=== PATIENT | female | born 1990 | race Caucasian/White ===

== ENCOUNTER 2017-02-24 08:21 | Emergency (ER) | payer OTHER ==
[~2017-02-24] VITALS: Ht 165.1 cm; Wt 75.8 kg
[~2017-02-24 08:21] MED LIST: DIFLUCAN150 MG PO; HYQVIA SQ; NAPROSYN500 MG PO; NORCO 5-325 TA1 EACH PO; PHENERGAN 25 MG25 M1 PO; VITAFOL-OB+DHA1 EACH PO; ZOFRAN ODT8 MG PO
[2017-02-24] MEDS ORDERED: KEFLEX500 MG PO (08:30)
[2017-02-24 08:31] LABS: URINE BILIRUBIN NEGATIVE (Negative); URINE BLOOD TRACE (Negative); URINE COLOR YELLOW; URINE GLUCOSE-RANDOM* NEGATIVE (Negative); URINE KETONES NEGATIVE (Negative); URINE NITRITE NEGATIVE (Negative); URINE PROTEIN (DIPSTICK) NEGATIVE (Negative); URINE SPECIFIC GRAVITY 1.015 (1.003-1.035); URINE UROBILINOGEN 0.2 E.U./dl (0.2-1.0)
[2017-02-24] MEDS ORDERED: HYDROCORTISONE10 MG PO (08:31)
[2017-02-24] MEDS ORDERED: HYDROCORTISONE5 MG PO (08:32)
[2017-02-24 09:07] LABS: ABSOLUTE NEUTROPHILS 6.4 thou/uL (1.4-8.2); BASOPHILS 0.3 % (0.0-2.0); EOSINOPHILS 0.4 % (0.0-3.0); HEMATOCRIT 37.6 % (37.0-47.0); HEMOGLOBIN 12.7 gm/dL (12.0-15.0); LYMPHOCYTES 25.2 % (24.0-44.0); MCH 30.1 pg (26.0-34.0); MCHC 33.9 g/dL (28.0-37.0); MCV 88.8 fL (80.0-100.0); MONOCYTES 4.8 % (1.0-8.0); PLATELET COUNT 168 thou/uL (150-400); POLYS 69.3 % (36.0-66.0); RBC 4.23 mil/uL (4.20-5.00); RDW 13.6 % (10.5-14.5); WBC 9.3 thou/uL (4.0-11.0)
[2017-02-24 09:12] LABS: MANUAL DIFF NO
[2017-02-24 09:13] LABS: CALCIUM 9.3 mg/dL (8.5-10.1); CREATININE 0.6 mg/dL (0.6-1.0); POTASSIUM 3.2 mmol/L (3.5-5.1)
[2017-02-24] MEDS ORDERED: NORCO 5-325 TA1 EACH PO ×2 (10:50→10:51)
[2017-02-24 11:10] VITALS: BP 100/63
== END 2017-02-24 10:52 | disposition home or self-care (01) ==
LOC: ER 08:21
PROVIDERS: Emergency Medicine
DX: O26.892 Other specified pregnancy related conditions, second trimester (principal); R10.2 Pelvic and perineal pain; E87.6 Hypokalemia; M35.9 Systemic involvement of connective tissue, unspecified; F10.99 Alcohol use, unspecified with unspecified alcohol-induced disorder; Z3A.19 19 weeks gestation of pregnancy; Z85.72 Personal history of non-Hodgkin lymphomas; Z88.8 Allergy status to other drugs, medicaments and biological substances; Z88.5 Allergy status to narcotic agent

== ENCOUNTER 2017-03-12 16:58 | Emergency (ER) | payer OTHER ==
[~2017-03-12] VITALS: Ht 165.1 cm; Wt 75.8 kg
[~2017-03-12 16:58] MED LIST changes: +HYDROCORTISONE10 MG PO; +HYDROCORTISONE5 MG PO; +KEFLEX500 MG PO
[2017-03-12 17:25] LABS: URINE BILIRUBIN NEGATIVE (Negative); URINE BLOOD NEGATIVE (Negative); URINE COLOR YELLOW; URINE GLUCOSE-RANDOM* NEGATIVE (Negative); URINE KETONES NEGATIVE (Negative); URINE NITRITE NEGATIVE (Negative); URINE PROTEIN (DIPSTICK) NEGATIVE (Negative); URINE UROBILINOGEN 0.2 E.U./dl (0.2-1.0)
[2017-03-12 18:02] LABS: ABSOLUTE NEUTROPHILS 9.5 thou/uL (1.4-8.2); BASOPHILS 0.5 % (0.0-2.0); EOSINOPHILS 0.2 % (0.0-3.0); HEMATOCRIT 33.1 % (37.0-47.0); HEMOGLOBIN 11.4 gm/dL (12.0-15.0); LYMPHOCYTES 21.2 % (24.0-44.0); MCH 30.1 pg (26.0-34.0); MCHC 34.3 g/dL (28.0-37.0); MCV 87.9 fL (80.0-100.0); MONOCYTES 3.7 % (1.0-8.0); PLATELET COUNT 160 thou/uL (150-400); POLYS 74.4 % (36.0-66.0); RBC 3.77 mil/uL (4.20-5.00); RDW 13.7 % (10.5-14.5); WBC 12.7 thou/uL (4.0-11.0)
[2017-03-12 18:05] LABS: MANUAL DIFF NO
[2017-03-12 18:06] LABS: CALCIUM 8.6 mg/dL (8.5-10.1); CREATININE 0.5 mg/dL (0.6-1.0); POTASSIUM 3.8 mmol/L (3.5-5.1)
[2017-03-12 18:11] LABS: ALBUMIN 2.7 g/dL (3.4-5.0); TOTAL BILIRUBIN 0.2 mg/dL (<0.1-1.0)
[2017-03-12] MEDS ORDERED: IBUPROFEN 600600 M1 PO (19:48)
[2017-03-12] MEDS ORDERED: PHENERGAN 25 MG25 M1 PO (19:48)
[2017-03-12 20:00] VITALS: BP 104/66
== END 2017-03-12 20:01 | disposition home or self-care (01) ==
LOC: ER 16:58
PROVIDERS: Nurse Practitioner Family
DX: O26.892 Other specified pregnancy related conditions, second trimester (principal); R10.2 Pelvic and perineal pain; Z3A.20 20 weeks gestation of pregnancy; Z88.5 Allergy status to narcotic agent; Z88.8 Allergy status to other drugs, medicaments and biological substances

== ENCOUNTER 2017-08-25 18:01 | Emergency (ER) | payer OTHER ==
[~2017-08-25] VITALS: Ht 167.6 cm; Wt 74.8 kg
[~2017-08-25 18:01] MED LIST changes: +IBUPROFEN 600600 M1 PO; +MOBIC15 MG PO; +PRILOSEC 20 MG20 MG PO; +ZANTAC 150MG T150 MG PO
[2017-08-25 18:41] LABS: ABSOLUTE NEUTROPHILS 3.3 thou/uL (1.4-8.2); BASOPHILS 0.5 % (0.0-2.0); EOSINOPHILS 1.5 % (0.0-3.0); LYMPHOCYTES 51.2 % (24.0-44.0); MCH 30.5 pg (26.0-34.0); MCV 89.7 fL (80.0-100.0); MONOCYTES 5.8 % (1.0-8.0); PLATELET COUNT 236 thou/uL (150-400); RBC 4.57 mil/uL (4.20-5.00); RDW 13.6 % (10.5-14.5); WBC 8.1 thou/uL (4.0-11.0)
[2017-08-25 18:43] LABS: URINE BILIRUBIN NEGATIVE (Negative); URINE BLOOD 1+ (Negative); URINE COLOR YELLOW; URINE GLUCOSE-RANDOM* NEGATIVE (Negative); URINE KETONES NEGATIVE (Negative); URINE LEUKOCYTES-REFLEX NEGATIVE (Negative); URINE PROTEIN (DIPSTICK) NEGATIVE (Negative); URINE UROBILINOGEN 0.2 E.U./dl (0.2-1.0)
[2017-08-25 18:43] LABS: MANUAL DIFF NO
[2017-08-25 18:46] LABS: CALCIUM 9.1 mg/dL (8.5-10.1); CREATININE 0.9 mg/dL (0.6-1.0); POTASSIUM 3.9 mmol/L (3.5-5.1)
[2017-08-25 18:51] LABS: ALBUMIN 3.7 g/dL (3.4-5.0); TOTAL BILIRUBIN 0.2 mg/dL (<0.1-1.0); TOTAL PROTEIN 7.4 g/dL (6.4-8.2)
[2017-08-25 18:52] LABS: CASTS None Seen /LPF (None Seen); CRYSTALS None Seen /LPF (None Seen); SQUAMOUS 0-3 Few /LPF (0-3); URINE RBC 0-2 Rare /HPF (0-2); URINE WBC-REFLEX 0-5 Rare /HPF (0-5)
[2017-08-25] MEDS ORDERED: NAPROSYN500 MG PO (20:35)
[2017-08-25] MEDS ORDERED: TRAMADOL 50 MG50 MG PO (20:35)
[2017-08-25 21:16] VITALS: BP 115/74
[2017-08-25] MEDS ORDERED: HYDROCODONE-AP1 EAC6 PO (21:27)
== END 2017-08-25 21:26 | disposition home or self-care (01) ==
LOC: ER 18:01
PROVIDERS: Emergency Medicine
DX: N83.202 Unspecified ovarian cyst, left side (principal); D89.89 Other specified disorders involving the immune mechanism, not elsewhere classified; Z88.5 Allergy status to narcotic agent; Z88.8 Allergy status to other drugs, medicaments and biological substances

== ENCOUNTER 2017-09-06 13:46 | Emergency (ER) | payer OTHER ==
[~2017-09-06] VITALS: Ht 167.6 cm; Wt 81.7 kg
[~2017-09-06 13:46] MED LIST changes: +HYDROCODONE-AP1 EAC6 PO; +PROMS25 WY RECTAL; +TRAMADOL 50 MG50 MG PO
[2017-09-06 14:49] LABS: URINE BILIRUBIN NEGATIVE (Negative); URINE BLOOD 3+ (Negative); URINE CLARITY CLEAR; URINE COLOR YELLOW; URINE GLUCOSE-RANDOM* NEGATIVE (Negative); URINE KETONES NEGATIVE (Negative); URINE LEUKOCYTES-REFLEX NEGATIVE (Negative); URINE NITRITE-REFLEX NEGATIVE (Negative); URINE PROTEIN (DIPSTICK) NEGATIVE (Negative); URINE UROBILINOGEN 0.2 E.U./dl (0.2-1.0)
[2017-09-06 14:50] LABS: HEMATOCRIT 38.8 % (37.0-47.0); HEMOGLOBIN 13.2 gm/dL (12.0-15.0); MCH 30.2 pg (26.0-34.0); MCV 88.6 fL (80.0-100.0); RBC 4.37 mil/uL (4.20-5.00); RDW 13.9 % (10.5-14.5); WBC 6.2 thou/uL (4.0-11.0)
[2017-09-06 14:56] LABS: CALCIUM 9.5 mg/dL (8.5-10.1); CREATININE 0.9 mg/dL (0.6-1.0); POTASSIUM 4.1 mmol/L (3.5-5.1)
[2017-09-06 14:57] LABS: SQUAMOUS >10 Many /LPF (0-3)
[2017-09-06 14:58] LABS: BACTERIA-REFLEX 1-9 Few /HPF (None Seen); CASTS None Seen /LPF (None Seen); CRYSTALS None Seen /LPF (None Seen); URINE RBC 3-10 Few /HPF (0-2); URINE WBC-REFLEX 0-5 Rare /HPF (0-5)
[2017-09-06 15:03] LABS: ALBUMIN 3.7 g/dL (3.4-5.0); TOTAL BILIRUBIN 0.4 mg/dL (<0.1-1.0); TOTAL PROTEIN 7.9 g/dL (6.4-8.2)
[2018-03-03] MEDS ORDERED: IBUPROFEN 200200 M1 PO (21:32)
[2018-03-03] MEDS ORDERED: FLAGYL500 MG PO (22:54)
[2018-03-03] MEDS ORDERED: NORCO 5-325 TA1 EAC1 PO (22:54)
[2018-03-03] MEDS ORDERED: CIPROFLOXACIN500 M1 PO (22:54)
[2018-03-04] MEDS ORDERED: PHENERGAN 25 MG25 M1 PO (12:42)
== END 2017-09-06 16:55 | disposition home or self-care (01) ==
LOC: ER 13:46
PROVIDERS: Emergency Medicine
DX: N83.202 Unspecified ovarian cyst, left side (principal); D89.89 Other specified disorders involving the immune mechanism, not elsewhere classified; Z85.71 Personal history of Hodgkin lymphoma; Z88.8 Allergy status to other drugs, medicaments and biological substances; Z88.5 Allergy status to narcotic agent

== ENCOUNTER 2017-10-01 18:57 | Emergency (ER) | payer OTHER ==
[~2017-10-01] VITALS: Ht 167.6 cm; Wt 78.5 kg
[2017-10-01 20:11] LABS: URINE BILIRUBIN NEGATIVE (Negative); URINE BLOOD NEGATIVE (Negative); URINE CLARITY CLEAR; URINE COLOR YELLOW; URINE GLUCOSE-RANDOM* NEGATIVE (Negative); URINE KETONES NEGATIVE (Negative); URINE LEUKOCYTES-REFLEX NEGATIVE (Negative); URINE NITRITE-REFLEX NEGATIVE (Negative); URINE PROTEIN (DIPSTICK) NEGATIVE (Negative); URINE UROBILINOGEN 0.2 E.U./dl (0.2-1.0)
[2017-10-01 20:51] LABS: ABSOLUTE NEUTROPHILS 3.3 thou/uL (1.4-8.2); BASOPHILS 0.5 % (0.0-2.0); HEMATOCRIT 38.4 % (37.0-47.0); LYMPHOCYTES 44.3 % (24.0-44.0); MCH 29.8 pg (26.0-34.0); MCHC 33.8 g/dL (28.0-37.0); MONOCYTES 4.7 % (1.0-8.0); PLATELET COUNT 265 thou/uL (150-400); POLYS 49.5 % (36.0-66.0); RBC 4.36 mil/uL (4.20-5.00); RDW 12.8 % (10.5-14.5); WBC 6.7 thou/uL (4.0-11.0)
[2017-10-01 21:08] LABS: CALCIUM 9.2 mg/dL (8.5-10.1); CREATININE 0.9 mg/dL (0.6-1.0)
[2017-10-01 21:12] LABS: ALBUMIN 3.9 g/dL (3.4-5.0); TOTAL BILIRUBIN 0.3 mg/dL (<0.1-1.0)
[2017-10-01 21:22] LABS: AMP/METHAMP Negative (Negative); BARBITURATES Negative (Negative); BENZODIAZEPINES Negative (Negative); COCAINE Negative (Negative); METHADONE Negative (Negative); OPIATES Negative (Negative); PCP Negative (Negative)
[2017-10-01] MEDS ORDERED: PROMS25 WY RECTAL (21:44)
[2017-10-01] MEDS ORDERED: NAPROSYN500 MG PO (21:44)
[2018-03-03] MEDS ORDERED: IBUPROFEN 200200 M1 PO (21:32)
[2018-03-03] MEDS ORDERED: NORCO 5-325 TA1 EAC1 PO (22:54)
[2018-03-03] MEDS ORDERED: CIPROFLOXACIN500 M1 PO (22:54)
[2018-03-03] MEDS ORDERED: FLAGYL500 MG PO (22:54)
[2018-03-04] MEDS ORDERED: PHENERGAN 25 MG25 M1 PO (12:42)
== END 2017-10-01 22:35 | disposition home or self-care (01) ==
LOC: ER 18:57
PROVIDERS: Emergency Medicine
DX: G89.29 Other chronic pain (principal); R10.9 Unspecified abdominal pain; R11.2 Nausea with vomiting, unspecified; M54.5 Low back pain; Z88.6 Allergy status to analgesic agent; Z88.8 Allergy status to other drugs, medicaments and biological substances

== ENCOUNTER 2017-10-18 14:50 | Emergency (ER) | payer OTHER ==
[~2017-10-18] VITALS: Ht 167.6 cm; Wt 78.5 kg
[2017-10-18] MEDS ORDERED: [UNRECOGNIZED DRUG - OTHER] IV PUSH (15:09)
[2017-10-18] MEDS ORDERED: TYLENOL325 MG PO (15:10)
[2017-10-18 16:13] LABS: ABSOLUTE NEUTROPHILS 2.8 thou/uL (1.4-8.2); BASOPHILS 0.4 % (0.0-2.0); EOSINOPHILS 1.4 % (0.0-3.0); HEMATOCRIT 39.4 % (37.0-47.0); HEMOGLOBIN 13.4 gm/dL (12.0-15.0); LYMPHOCYTES 41.8 % (24.0-44.0); MCH 29.9 pg (26.0-34.0); MCV 87.9 fL (80.0-100.0); MONOCYTES 5.8 % (1.0-8.0); PLATELET COUNT 214 thou/uL (150-400); POLYS 50.6 % (36.0-66.0); RBC 4.48 mil/uL (4.20-5.00); RDW 12.9 % (10.5-14.5); WBC 5.6 thou/uL (4.0-11.0)
[2017-10-18 16:16] LABS: CALCIUM 9.1 mg/dL (8.5-10.1); CREATININE 0.8 mg/dL (0.6-1.0); POTASSIUM 3.9 mmol/L (3.5-5.1)
[2017-10-18 16:17] LABS: MAGNESIUM 1.9 mg/dL (1.8-2.4)
[2017-10-18] MEDS ORDERED: ULTRAM 50MG TAB50 MG PO (16:23)
[2017-10-18] MEDS ORDERED: CYCLOBENZAPRINE5 MG PO (16:23)
[2018-03-03] MEDS ORDERED: IBUPROFEN 200200 M1 PO (21:32)
[2018-03-03] MEDS ORDERED: CIPROFLOXACIN500 M1 PO (22:54)
[2018-03-03] MEDS ORDERED: FLAGYL500 MG PO (22:54)
[2018-03-03] MEDS ORDERED: NORCO 5-325 TA1 EAC1 PO (22:54)
[2018-03-04] MEDS ORDERED: PHENERGAN 25 MG25 M1 PO (12:42)
== END 2017-10-18 17:06 | disposition home or self-care (01) ==
LOC: ER 14:50
PROVIDERS: Physician Assistant
DX: M79.605 Pain in left leg (principal); M62.838 Other muscle spasm

== ENCOUNTER 2017-11-12 17:17 | Emergency (ER) | payer OTHER ==
[~2017-11-12] VITALS: Ht 167.6 cm; Wt 78.0 kg
[~2017-11-12 17:17] MED LIST changes: +CYCLOBENZAPRINE5 MG PO; +TYLENOL325 MG PO; +ULTRAM 50MG TAB50 MG PO; +[UNRECOGNIZED DRUG - OTHER] IV PUSH
[2017-11-12] MEDS ORDERED: NEURONTIN 300300 M1 PO (17:36)
[2017-11-12 18:26] LABS: URINE BILIRUBIN NEGATIVE (Negative); URINE BLOOD 3+ (Negative); URINE CLARITY CLEAR; URINE COLOR YELLOW; URINE GLUCOSE-RANDOM* NEGATIVE (Negative); URINE KETONES NEGATIVE (Negative); URINE LEUKOCYTES-REFLEX NEGATIVE (Negative); URINE NITRITE-REFLEX NEGATIVE (Negative); URINE PROTEIN (DIPSTICK) NEGATIVE (Negative); URINE SPECIFIC GRAVITY <= 1.005 (1.005-1.035); URINE UROBILINOGEN 0.2 E.U./dl (0.2-1.0)
[2017-11-12 18:35] LABS: BACTERIA-REFLEX None Seen /HPF (None Seen); CASTS None Seen /LPF (None Seen); CRYSTALS None Seen /LPF (None Seen); SQUAMOUS 0-3 Few /LPF (0-3); URINE WBC-REFLEX 0-5 Rare /HPF (0-5)
[2017-11-12 18:51] LABS: ABSOLUTE NEUTROPHILS 3.5 thou/uL (1.4-8.2); BASOPHILS 0.6 % (0.0-2.0); EOSINOPHILS 2.5 % (0.0-3.0); HEMATOCRIT 33.6 % (37.0-47.0); HEMOGLOBIN 11.5 gm/dL (12.0-15.0); LYMPHOCYTES 41.2 % (24.0-44.0); MCH 29.6 pg (26.0-34.0); MCHC 34.1 g/dL (28.0-37.0); MCV 86.8 fL (80.0-100.0); MONOCYTES 5.4 % (1.0-8.0); PLATELET COUNT 201 thou/uL (150-400); POLYS 50.3 % (36.0-66.0); RBC 3.87 mil/uL (4.20-5.00); RDW 12.6 % (10.5-14.5); WBC 6.9 thou/uL (4.0-11.0)
[2017-11-12 18:57] LABS: CALCIUM 8.8 mg/dL (8.5-10.1); CREATININE 0.8 mg/dL (0.6-1.0); POTASSIUM 3.3 mmol/L (3.5-5.1)
[2017-11-12 19:03] LABS: ALBUMIN 3.5 g/dL (3.4-5.0); TOTAL BILIRUBIN 0.4 mg/dL (<0.1-1.0); TOTAL PROTEIN 7.7 g/dL (6.4-8.2)
[2017-11-12] MEDS ORDERED: BENTYL 20 MG TA20 M1 PO (20:31)
[2017-11-12] MEDS ORDERED: HYDROCODONE-AP1 EAC6 PO (20:31)
[2018-03-03] MEDS ORDERED: IBUPROFEN 200200 M1 PO (21:32)
[2018-03-03] MEDS ORDERED: CIPROFLOXACIN500 M1 PO (22:54)
[2018-03-03] MEDS ORDERED: FLAGYL500 MG PO (22:54)
[2018-03-03] MEDS ORDERED: NORCO 5-325 TA1 EAC1 PO (22:54)
[2018-03-04] MEDS ORDERED: PHENERGAN 25 MG25 M1 PO (12:42)
== END 2017-11-12 20:46 | disposition home or self-care (01) ==
LOC: ER 17:17
PROVIDERS: Physician Assistant
DX: G89.18 Other acute postprocedural pain (principal); R10.9 Unspecified abdominal pain; G89.29 Other chronic pain; Z88.8 Allergy status to other drugs, medicaments and biological substances

== ENCOUNTER 2017-12-07 09:54 | Emergency (ER) | payer OTHER ==
[~2017-12-07] VITALS: Ht 167.6 cm; Wt 77.1 kg
[~2017-12-07 09:54] MED LIST changes: +BENTYL 20 MG TA20 M1 PO; +NEURONTIN 300300 M1 PO
[2017-12-07] MEDS ORDERED: CORTEF5 MG PO (10:09)
[2017-12-07 10:46] LABS: URINE BILIRUBIN NEGATIVE (Negative); URINE BLOOD 1+ (Negative); URINE CLARITY CLEAR; URINE COLOR YELLOW; URINE GLUCOSE-RANDOM* NEGATIVE (Negative); URINE KETONES NEGATIVE (Negative); URINE LEUKOCYTES NEGATIVE (Negative); URINE NITRITE NEGATIVE (Negative); URINE PROTEIN (DIPSTICK) NEGATIVE (Negative); URINE SPECIFIC GRAVITY <= 1.005 (1.005-1.035); URINE UROBILINOGEN 0.2 E.U./dl (0.2-1.0)
[2017-12-07 11:10] LABS: CASTS None Seen /LPF (None Seen); CRYSTALS None Seen /LPF (None Seen); SQUAMOUS 0-3 Few /LPF (0-3); URINE RBC 0-2 Rare /HPF (0-2); URINE WBC 0-5 Rare /HPF (0-5)
[2017-12-07 11:11] LABS: BACTERIA None Seen /HPF (None Seen)
[2017-12-07 12:56] LABS: ABSOLUTE NEUTROPHILS 3.9 thou/uL (1.4-8.2); BASOPHILS 0.3 % (0.0-2.0); HEMATOCRIT 40.6 % (37.0-47.0); HEMOGLOBIN 13.8 gm/dL (12.0-15.0); LYMPHOCYTES 37.3 % (24.0-44.0); MCH 29.4 pg (26.0-34.0); MCV 86.2 fL (80.0-100.0); MONOCYTES 4.1 % (1.0-8.0); PLATELET COUNT 211 thou/uL (150-400); POLYS 57.3 % (36.0-66.0); RBC 4.71 mil/uL (4.20-5.00); RDW 12.9 % (10.5-14.5); WBC 6.8 thou/uL (4.0-11.0)
[2017-12-07 13:06] LABS: CALCIUM 9.9 mg/dL (8.5-10.1); CREATININE 0.7 mg/dL (0.6-1.0); POTASSIUM 4.2 mmol/L (3.5-5.1)
[2017-12-07 13:12] LABS: TOTAL BILIRUBIN 0.3 mg/dL (<0.1-1.0); TOTAL PROTEIN 8.6 g/dL (6.4-8.2)
[2017-12-07 13:43] VITALS: BP 123/52
== END 2017-12-07 14:44 | disposition home or self-care (01) ==
LOC: ER 09:54
PROVIDERS: Nurse Practitioner Family
DX: N93.8 Other specified abnormal uterine and vaginal bleeding (principal); R10.9 Unspecified abdominal pain; G89.29 Other chronic pain; Z88.8 Allergy status to other drugs, medicaments and biological substances

== ENCOUNTER 2017-12-28 18:14 | Emergency (ER) | payer OTHER ==
[~2017-12-28] VITALS: Ht 167.6 cm; Wt 79.4 kg
[~2017-12-28 18:14] MED LIST changes: +CORTEF5 MG PO
[2017-12-28 18:34] LABS: URINE BILIRUBIN NEGATIVE (Negative); URINE BLOOD 1+ (Negative); URINE CLARITY CLEAR; URINE COLOR YELLOW; URINE GLUCOSE-RANDOM* NEGATIVE (Negative); URINE KETONES NEGATIVE (Negative); URINE LEUKOCYTES-REFLEX 1+ (Negative); URINE NITRITE-REFLEX NEGATIVE (Negative); URINE PROTEIN (DIPSTICK) NEGATIVE (Negative); URINE SPECIFIC GRAVITY <= 1.005 (1.005-1.035); URINE UROBILINOGEN 0.2 E.U./dl (0.2-1.0)
[2017-12-28 18:52] LABS: BACTERIA-REFLEX None Seen /HPF (None Seen); CASTS None Seen /LPF (None Seen); CRYSTALS None Seen /LPF (None Seen); SQUAMOUS >10 Many /LPF (0-3); URINE RBC None Seen /HPF (0-2); URINE WBC-REFLEX 6-15 Few /HPF (0-5)
[2017-12-28 20:15] LABS: ABSOLUTE NEUTROPHILS 4.2 thou/uL (1.4-8.2); BASOPHILS 0.4 % (0.0-2.0); EOSINOPHILS 0.7 % (0.0-3.0); HEMATOCRIT 36.9 % (37.0-47.0); HEMOGLOBIN 12.4 gm/dL (12.0-15.0); MCH 28.8 pg (26.0-34.0); MCHC 33.6 g/dL (28.0-37.0); MCV 85.8 fL (80.0-100.0); MONOCYTES 3.4 % (1.0-8.0); PLATELET COUNT 223 thou/uL (150-400); POLYS 57.5 % (36.0-66.0); RDW 13.2 % (10.5-14.5); WBC 7.3 thou/uL (4.0-11.0)
[2017-12-28 20:27] LABS: CALCIUM 8.8 mg/dL (8.5-10.1); CREATININE 0.8 mg/dL (0.6-1.0); POTASSIUM 3.8 mmol/L (3.5-5.1)
[2017-12-28 20:31] LABS: ALBUMIN 3.8 g/dL (3.4-5.0); TOTAL BILIRUBIN 0.3 mg/dL (<0.1-1.0); TOTAL PROTEIN 7.6 g/dL (6.4-8.2)
[2017-12-28] MEDS ORDERED: HYDROCODONE-AP1 EAC6 PO (20:37)
[2017-12-28] MEDS ORDERED: BACTRIM DS TAB1 EACH PO (20:37)
[2017-12-28 20:51] VITALS: BP 122/83
== END 2017-12-28 20:51 | disposition home or self-care (01) ==
LOC: ER 18:14
PROVIDERS: Physician Assistant
DX: N39.0 Urinary tract infection, site not specified (principal); Z87.442 Personal history of urinary calculi; Z88.1 Allergy status to other antibiotic agents; Z88.8 Allergy status to other drugs, medicaments and biological substances